=== PATIENT | male | born 1995 | race American Indian/Alaskan Native ===

== ENCOUNTER 2019-09-07 11:05 | Emergency (ER) | payer OTHER ==
[2019-09-07] MEDS ORDERED: SODIUM CHLORIDE IRRI 500 ML 500 ML IR ONE (11:13)
[2019-09-07] MEDS ORDERED: LIDOCAINE 2%/EPINEPHRINE 1:100,000 VIAL (20 ML) INFILTRATI ONE (11:13)
[2019-09-07 11:34] VITALS: BP 132/77
[2019-09-07] MEDS ORDERED: NEOMY 3.5 MG/BACIT 400 UNITS/POLY B 5000 UNITS/GM OINT PACKET TP ONE ×2 (11:58→15:08)
--- NOTE | 2019-09-07 12:16 | Emergency Department Report ---
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 Patient suffered a large laceration with arterial bleeding. Patient states pain is 6 out of 10 in severity. A tourniquet was placed on the patient's left upper extremity prior to arrival. Patient denies any shortness of breath dizziness loss of consciousness or any other injury at this time. - Related Data Previous Rx's Medication Instructions Recorded Last Taken Type Ibuprofen [Motrin 600 MG tab] 600 mg PO Q8H PRN #20 tablet 09/07/19 Unknown Rx Sulfamethoxazole/Trimethoprim 1 each PO BID #10 tablet 09/07/19 Unknown Rx [Bactrim DS TAB] traMADoL [Ultram] 50 mg PO Q6HR PRN #10 tablet 09/07/19 Unknown Rx Allergies Allergy/AdvReac Type Severity Reaction Status Date / Time No Known Allergies Allergy Unverified 05/19/18 19:33 ED Review of Systems ROS: Stated complaint: LACERATION ON ARM Other details as noted in HPI Comment: All other systems reviewed and negative ED Past Medical Hx - Past Medical History Previous Medical History?: Yes Hx Seizures: Yes Additional medical history: AVM - had radiation November - Surgical History Past Surgical History?: No - Social History Smoking Status: Current Some Day Smoker Substance Use Type: None - Medications Home Medications: Home Medications Medication Instructions Recorded Confirmed Last Taken Type Ibuprofen [Motrin 600 MG tab] 600 mg PO Q8H PRN #20 tablet 09/07/19 Unknown Rx Sulfamethoxazole/Trimethoprim 1 each PO BID #10 tablet 09/07/19 Unknown Rx [Bactrim DS TAB] traMADoL [Ultram] 50 mg PO Q6HR PRN #10 tablet 09/07/19 Unknown Rx ED Physical Exam - General Limitations: No Limitations General appearance: alert, in no apparent distress - Head Head exam: Present: atraumatic, normocephalic - Eye Eye exam: Present: normal appearance - ENT ENT exam: Present: mucous membranes moist - Neck Neck exam: Present: normal inspection - Respiratory Respiratory exam: Present: normal lung sounds bilaterally. Absent: respiratory distress, wheezes, rales - Cardiovascular Cardiovascular Exam: Present: regular rate, normal rhythm. Absent: systolic murmur, diastolic murmur, rubs, gallop - GI/Abdominal GI/Abdominal exam: Present: soft, normal bowel sounds - Rectal Rectal exam: Present: deferred - Extremities Exam Extremities exam: Present: normal inspection, other (5 cm laceration with muscle exposure just distal to left elbow) - Back Exam Back exam: Present: normal inspection - Neurological Exam Neurological exam: Present: alert, oriented X3 - Psychiatric Psychiatric exam: Present: normal affect, normal mood - Skin Skin exam: Present: warm, dry, intact, normal color. Absent: rash ED Course Vital Signs 09/07/19 11:29 Temperature 99.0 F Pulse Rate 70 Respiratory 16 Rate Blood Pressure 132/77 Blood Pressure 132/77 [Right] O2 Sat by Pulse 99 Oximetry - Laceration /Wound Repair Left Upper Lateral Arm Wound Location: upper extremity Wound Length (cm): 5 Wound's Depth, Shape: into muscle, linear Wound Explored: clean Irrigated w/ Saline (ccs): 200 Betadine Prep?: Yes Anesthesia: Lidocaine w/ Epi Volume Anesthetic (ccs): 15 Wound Repaired With: sutures Suture Size/Type: proline Number of Sutures: 13 Layer Closure?: Yes Deep Layer Suture Size/Type: 4:0 Number Deep Layer Sutures: 10 Sterile Dressing Applied?: Yes ED Medical Decision Making - Medical Decision Making Laceration was repaired. There is no evidence of any further bleeding after the tourniquet was removed. Patient given post laceration instructions and will be discharged home. Critical care attestation.: If time is entered above; I have spent that time in minutes in the direct care of this critically ill patient, excluding procedure time. ED Disposition Clinical Impression: Laceration Disposition: DC-01 TO HOME OR SELFCARE Is pt being admited?: No Does the pt Need Aspirin: No Condition: Stable Instructions: Laceration (ED), Suture Care (ED) Forms: Work/School Release Form(ED) Time of Disposition: 12:19
[2019-09-07] MEDS ORDERED: SODIUM CHLORIDE 0.9% IRR 500 ML BOTTLE IR ONE (15:07)
[2019-09-07] MEDS ORDERED: LIDOCAINE 1%/EPINEPHRINE 1:100,000 VIAL (20 ML) INFILTRATI NR ×2 (15:10→16:00)
== END 2019-09-07 12:29 | disposition home or self-care (01) ==
LOC: ED 11:05
DX: S51.012A Laceration without foreign body of left elbow, initial encounter (principal); R56.9 Unspecified convulsions; F17.200 Nicotine dependence, unspecified, uncomplicated; Z79.1 Long term (current) use of non-steroidal anti-inflammatories (NSAID); Z79.899 Other long term (current) drug therapy; W26.8XXA Contact with other sharp object(s), not elsewhere classified, initial encounter; Y93.89 Activity, other specified; Y92.89 Other specified places as the place of occurrence of the external cause; Y99.8 Other external cause status
CPT/HCPCS: A6250